=== PATIENT | male | born 1950 | race Caucasian/White ===

== ENCOUNTER 2019-05-13 04:18 | Emergency (ER) | payer OTHER ==
[~2019-05-13] VITALS: Ht 175.3 cm; Wt 108.9 kg
[2019-05-13 04:25] VITALS: BP 173/63
--- NOTE | 2019-05-13 04:25 | NUR ---
TO BED # 01 AMBULATORY WITH C/O RT FLANK PAIN, N/V/D STARTED AR 2100HOURS.
--- NOTE | 2019-05-13 04:30 | NUR ---
SEEN AND EXAMINED BY CASSIDY WITH ORDERS AND CARRIED OUT.
[2019-05-13] MEDS ORDERED: NACL 0.9% 1,000 ML IV ONE (04:35)
[2019-05-13] MEDS ORDERED: MORPHINE SULFATE 4 MG/ML SYR IVP ONE (04:35)
[2019-05-13] MEDS ORDERED: ONDANSETRON 4 MG/2 ML VIAL IVP ONE (04:35)
--- NOTE | 2019-05-13 04:40 | NUR ---
MEDICATED PER [facility]MDS ORDER, PATIENT TOLERATED WELL.
[2019-05-13 04:49] LABS: BASOPHILS # (AUTO) 0.1 K/uL (0.00-0.22); BASOPHILS % (AUTO) 0.9 % (0.0-2.0); EOSINOPHILS % (AUTO) 0.1 % (0.0-4.0); HEMATOCRIT 43.7 % (36-52); LYMPHOCYTES # (AUTO) 0.4 K/uL (2.0-11.5); MEAN CORPUSCULAR HEMOGLOBIN 30 pg (27-31); MEAN CORPUSCULAR HGB CONC 34 g/dL (33-37); MONOCYTES # (AUTO) 0.2 K/uL (0.8-1.0); MONOCYTES % (AUTO) 3.1 % (1.7-9.3); NEUTROPHILS # (AUTO) 6.6 K/uL (1.8-7.7); NEUTROPHILS % (AUTO) 90.9 % (42.2-75.2); PLATELET COUNT (AUTO) 195 K/uL (140-450); RED BLOOD CELL COUNT(AUTO) 4.97 MIL/uL (4.20-6.10); RED CELL DISTRIBUTION WIDTH 13.4 % (11.6-13.7); WHITE BLOOD COUNT (AUTO) 7.2 K/uL (4.8-10.8)
[2019-05-13] MEDS ORDERED: ATOR20TA PO (05:19)
[2019-05-13] MEDS ORDERED: LANTUS SC (05:19)
[2019-05-13] MEDS ORDERED: EMPA10TA PO (05:19)
[2019-05-13] MEDS ORDERED: LOSA50TA1 PO (05:19)
[2019-05-13] MEDS ORDERED: ASPIRIN 81 MG TAB.CHEW PO ONE (05:20)
[2019-05-13 05:35] LABS: ALBUMIN 4.2 g/dL (3.4-5.0); ANION GAP 15.9 (8-16); CARBON DIOXIDE 29.1 mmol/L (21-32); CREATININE 1.3 mg/dL (0.7-1.3); TOTAL BILIRUBIN 2.1 mg/dL (0.0-1.0)
[2019-05-13] MEDS ORDERED: POTASSIUM CHLORIDE 10 MEQ TABER PO ONE (05:45)
[2019-05-13 06:01] LABS: APPEARANCE,URINE CLEAR (CLEAR); BILIRUBIN,URINE NEGATIVE (NEGATIVE); BLOOD, URINE NEGATIVE (NEGATIVE); COLOR,URINE YELLOW (YELLOW); LEUKOCYTE ESTERASE ,URINE NEGATIVE (NEGATIVE); NITRITE, URINE NEGATIVE (NEGATIVE); UGLUCOSE 3+ (NEGATIVE)
[2019-05-13 06:08] LABS: RBC,URINE 0-5 /HPF (0-5); WBC,URINE 0-5 /HPF (0-5)
--- NOTE | 2019-05-13 07:00 | NUR ---
ALL RESULTS BACK AND NOTED BY ERMD AND FOR D/C
[2019-05-13 07:17] VITALS: BP 143/68
--- NOTE | 2019-05-13 07:17 | NUR ---
Patient discharged with v/s stable. Written and verbal after care instructions given and explained. Patient alert, oriented and verbalized understanding of instructions. Ambulatory with steady gait. All questions addressed prior to discharge. ID band removed. Patient advised to follow up with PMD. Rx of ZOFRAN 4MG, [id number] given. Patient educated on indication of medication including possible reaction and side effects. Opportunity to ask questions provided and answered.
== END 2019-05-13 07:17 | disposition home or self-care (01) ==
LOC: MED 04:18
DX: M54.9 Dorsalgia, unspecified (principal); K80.20 Calculus of gallbladder without cholecystitis without obstruction; E11.9 Type 2 diabetes mellitus without complications; I10 Essential (primary) hypertension; Z79.84 Long term (current) use of oral hypoglycemic drugs; Z79.899 Other long term (current) drug therapy
CPT/HCPCS: 36415; 71275; 76705; 80053; 81001; 83690; 84484; 85025; 93005; 96361; 96374; 96375; 99284; J2270; J2405; J7030; Q0092; Q9967

== ENCOUNTER 2023-06-05 09:48 | Inpatient (IN) | payer OTHER ==
[~2023-06-05] VITALS: Ht 175.3 cm; Wt 63.5 kg
[~2023-06-05 09:48] MED LIST: ATOR20TA PO; EMPA10TA PO; LANTUS SC; LOSA-270 PO
[2023-06-05 09:57] VITALS: BP 145/77; PULSE 90; RESP 23; TEMP 97.8; O2SAT 90
[2023-06-05 10:42] LABS: BASOPHILS % (AUTO) 0.7 % (0.0-2.0); EOSINOPHILS # (AUTO) 0.3 K/uL (0-0.4); EOSINOPHILS % (AUTO) 5.4 % (0.0-4.0); HEMATOCRIT 44.9 % (36-52); HEMOGLOBIN 15.3 g/dL (12.0-18.0); LYMPHOCYTES # (AUTO) 0.7 K/uL (2.0-11.5); LYMPHOCYTES % (AUTO) 10.9 % (20.5-51.1); MEAN CORPUSCULAR HEMOGLOBIN 30 pg (27-31); MEAN CORPUSCULAR HGB CONC 34 g/dL (33-37); MEAN CORPUSCULAR VOLUME 89.3 fL (80-94); MONOCYTES # (AUTO) 0.5 K/uL (0.8-1.0); MONOCYTES % (AUTO) 8.2 % (1.7-9.3); NEUTROPHILS # (AUTO) 4.8 K/uL (1.8-7.7); NEUTROPHILS % (AUTO) 74.8 % (42.2-75.2); PLATELET COUNT (AUTO) 301 K/uL (140-450); RED BLOOD CELL COUNT(AUTO) 5.02 MIL/uL (4.20-6.10); RED CELL DISTRIBUTION WIDTH 13.2 % (11.6-13.7); WHITE BLOOD COUNT (AUTO) 6.4 K/uL (4.8-10.8)
[2023-06-05 10:56] LABS: ALANINE AMINOTRANSFERASE 61 U/L (12-78); ALBUMIN 2.9 g/dL (3.4-5.0); ALKALINE PHOSPHATASE 178 U/L (50-136); ANION GAP 9.9 (8-16); ASPARTATE AMINOTRANSFERASE 32 U/L (15-37); CALCIUM 8.7 mg/dL (8.5-10.1); CARBON DIOXIDE 28.5 mmol/L (21-32); CHLORIDE 101 mmol/L (98-107); CREATININE 1.2 mg/dL (0.6-1.3); GLUCOSE 251 mg/dL (74-106); POTASSIUM 3.4 mmol/L (3.5-5.1); SODIUM SERUM 136 mmol/L (136-145); TOTAL BILIRUBIN 0.9 mg/dL (0.0-1.0); TOTAL PROTEIN, SERUM 7.6 g/dL (6.4-8.2); UREA NITROGEN, BLOOD 14 mg/dL (7-18)
[2023-06-05] MEDS ORDERED: ALBUTEROL SULFATE/IPRATROPIU 3 ML SOL IH ONE (11:05)
[2023-06-05] MEDS ORDERED: methylPREDNISolone SS 125 MG in WATER STERILE 2 ML IM ONE (11:05)
[2023-06-05] MEDS ORDERED: WATER STERILE 10 ML MC ONE (11:07)
[2023-06-05] MEDS ORDERED: methylPREDNISolone SS 125 MG/2 ML VIAL ONE (11:08)
[2023-06-05 11:14] VITALS: PULSE 73; RESP 16; O2SAT 98
[2023-06-05] MEDS ORDERED: AZITHROMYCIN 500 MG in DEXTROSE 5% 250 ML IV ONE (13:25)
[2023-06-05] MEDS ORDERED: cefTRIAXone 1,000 MG VIAL ONE ×2 (13:43→22:03)
[2023-06-05] MEDS ORDERED: AZITHROMYCIN 500 MG INJ VIAL IV ONE ×2 (14:37→22:48)
[2023-06-05 19:46] VITALS: O2SAT 94
[2023-06-05] MEDS ORDERED: MORPHINE SULFATE 2 MG/ML SYR IVP PRN (20:05)
[2023-06-05] MEDS ORDERED: LORazepam 2 MG/ML VIAL IVP PRN (20:05)
[2023-06-05] MEDS ORDERED: ACETAMINOPHEN 325 MG TAB PO PRN (20:05)
[2023-06-05] MEDS ORDERED: ONDANSETRON 4 MG/2 ML VIAL IVP PRN (20:05)
[2023-06-05 21:44] VITALS: BP 136/64; PULSE 79; PULSE 82; RESP 17; RESP 18; TEMP 97.2; O2SAT 93
[2023-06-05] MEDS: NACL 0.9% 1,000 ML IV SCH (22:16)
[2023-06-05 22:48] VITALS: PULSE 70; RESP 21; O2SAT 93
[2023-06-05] MEDS: AZITHROMYCIN 500 MG in DEXTROSE 5% 250 ML IV SCH (22:52)
[2023-06-06] VITALS (12 sets, daily range): BP systolic 131–142; BP diastolic 68–73; PULSE 68–89; RESP 17–19; TEMP 97–98.6; O2SAT 92–99
[2023-06-06] MEDS: NACL 0.9% 1,000 ML IV SCH ×2 (06:05→18:08)
[2023-06-06 06:23] LABS: BASOPHILS % (AUTO) 0.1 % (0.0-2.0); EOSINOPHILS % (AUTO) 0.1 % (0.0-4.0); HEMOGLOBIN 14.8 g/dL (12.0-18.0); LYMPHOCYTES # (AUTO) 0.5 K/uL (2.0-11.5); LYMPHOCYTES % (AUTO) 5.1 % (20.5-51.1); MEAN CORPUSCULAR HEMOGLOBIN 31 pg (27-31); MEAN CORPUSCULAR HGB CONC 34 g/dL (33-37); MEAN CORPUSCULAR VOLUME 88.8 fL (80-94); MONOCYTES # (AUTO) 0.2 K/uL (0.8-1.0); MONOCYTES % (AUTO) 2.2 % (1.7-9.3); NEUTROPHILS # (AUTO) 8.4 K/uL (1.8-7.7); NEUTROPHILS % (AUTO) 92.5 % (42.2-75.2); PLATELET COUNT (AUTO) 291 K/uL (140-450); RED BLOOD CELL COUNT(AUTO) 4.85 MIL/uL (4.20-6.10); RED CELL DISTRIBUTION WIDTH 13.1 % (11.6-13.7); WHITE BLOOD COUNT (AUTO) 9.1 K/uL (4.8-10.8)
[2023-06-06 06:46] LABS: ALANINE AMINOTRANSFERASE 58 U/L (12-78); ALBUMIN 2.6 g/dL (3.4-5.0); ALKALINE PHOSPHATASE 162 U/L (50-136); ANION GAP 14.4 (8-16); ASPARTATE AMINOTRANSFERASE 23 U/L (15-37); CALCIUM 8.4 mg/dL (8.5-10.1); CARBON DIOXIDE 25.2 mmol/L (21-32); CHLORIDE 99 mmol/L (98-107); CREATININE 1.1 mg/dL (0.6-1.3); GLUCOSE 366 mg/dL (74-106); MAGNESIUM 1.9 mg/dL (1.8-2.4); POTASSIUM 3.6 mmol/L (3.5-5.1); SODIUM SERUM 135 mmol/L (136-145); TOTAL BILIRUBIN 0.5 mg/dL (0.0-1.0); TOTAL PROTEIN, SERUM 7.3 g/dL (6.4-8.2); UREA NITROGEN, BLOOD 19 mg/dL (7-18)
[2023-06-06] MEDS ORDERED: DEXTROSE 50% 50 ML SYR IVP PRN (16:50)
[2023-06-06] MEDS: AZITHROMYCIN 500 MG in DEXTROSE 5% 250 ML IV SCH (20:32)
[2023-06-06] MEDS: INSULIN LISPRO SLIDING SCALE 100 UNITS/ML VIAL SUBQ PRN (20:56)
[2023-06-06] MEDS: BLOOD GLUCOSE MONITORING 1 DEV DEV FS SCH (21:32)
[2023-06-06] MEDS ORDERED: INSULIN LANTUS 100 UNITS/ML 10 ML VIAL SUBQ SCH (22:02)
[2023-06-07] VITALS: BP 131/74; PULSE 68; PULSE 69; RESP 18; TEMP 97; O2SAT 93
[2023-06-07] MEDS: NACL 0.9% 1,000 ML IV SCH ×2 (03:04→12:07)
[2023-06-07 04:00] VITALS: BP 136/72; PULSE 66; PULSE 67; RESP 18; TEMP 97.1; O2SAT 92
[2023-06-07] MEDS: BLOOD GLUCOSE MONITORING 1 DEV DEV FS SCH ×2 (06:51→12:07)
[2023-06-07] MEDS: INSULIN LISPRO SLIDING SCALE 100 UNITS/ML VIAL SUBQ PRN ×2 (06:53→12:06)
[2023-06-07 07:39] VITALS: PULSE 80; RESP 19; O2SAT 92
[2023-06-07 07:41] VITALS: PULSE 80; RESP 19; O2SAT 99
[2023-06-07 08:00] VITALS: PULSE 73; PULSE 85
[2023-06-07] MEDS ORDERED: LOSARTAN 50 MG TAB PO SCH (09:00)
[2023-06-07] MEDS ORDERED: ATORVASTATIN 20 MG TAB PO SCH (09:00)
[2023-06-07] MEDS ORDERED: AZIT250T3 PO (12:14)
[2023-06-07] MEDS ORDERED: CEPH-588 PO (12:14)
[2023-06-07 15:00] VITALS: BP 128/85; PULSE 68; RESP 20; TEMP 97.1
[2023-06-07] MEDS ORDERED: INSULIN LANTUS 100 UNITS/ML 10 ML VIAL SUBQ SCH (21:00)
== END 2023-06-07 16:00 | disposition home or self-care (01) | DRG 193 ==
LOC: MED 09:48 → MMU 20:06 → MTU 20:29
PROVIDERS: ADMIT Hospitalist; ATTEND Hospitalist
DX: J15.9 Unspecified bacterial pneumonia (principal); J96.01 Acute respiratory failure with hypoxia; E78.5 Hyperlipidemia, unspecified; I10 Essential (primary) hypertension; Z20.822 Contact with and (suspected) exposure to COVID-19; E78.00 Pure hypercholesterolemia, unspecified; E11.9 Type 2 diabetes mellitus without complications; Z86.16 Personal history of COVID-19; Z79.899 Other long term (current) drug therapy; Z87.891 Personal history of nicotine dependence
CPT/HCPCS: 36415; 71045; 71275; 80053; 82948; 83036; 83735; 83880; 84484; 85025; 85379; 87040; 87081; 93005; 96365; 96367; 96372; 99291; J0456; J0696; J1815; J2930; J7060; Q0092; Q9967